=== PATIENT | male | born 1995 | race African-American/Black ===

== ENCOUNTER 2018-02-24 15:21 | Outpatient (CLI) | payer OTHER, BC ==
--- NOTE | 2018-02-24 16:42 | Diagnostic Imaging Report ---
CATHERINE STEVEN [facility] [address] [facility].[address] [id number] Report Submission Date: Feb 24, 2018 4:04:56 PM CDT Patient Study Name: CHRISTI BECKER Date: Feb 24, 2018 3:24:10 PM CDT Modality Type: DX Gender: M Description: LOWER EXTREMITY : 89 Institution: [facility] Physician: CATHERINE STEVEN Examination: Plain film left foot History: LATERAL LEFT FOOT PAIN X3 WEEKS, NO KNOWN TRAUMA (Hx) Findings: 3 views of the left foot demonstrates normal cortical margins. No fracture or dislocation. No soft tissue swelling. No joint effusion. Impression: No acute osseous process. Electronically signed on Feb 24, 2018 4:04:56 PM CDT by: Chang ROBERTS
== END 2018-02-24 15:22 ==
LOC: RAD 15:21
PROVIDERS: ATTEND Family Medicine
DX: M79.672 Pain in left foot (principal)
CPT/HCPCS: 73630